=== PATIENT | female | born 1990 | race Caucasian/White ===

== ENCOUNTER 2024-03-27 12:10 | Emergency (ER) | payer OTHER ==
[~2024-03-27] VITALS: Ht 162.6 cm; Wt 78.0 kg
[2024-03-27 12:16] VITALS: BP 120/77; PULSE 76; RESP 18; TEMP 98; O2SAT 100
[2024-03-27] MEDS: KETOROLAC 30 MG/ML VIAL IVP ONE (13:39)
[2024-03-27] MEDS: ONDANSETRON 4 MG/2 ML VIAL IVP ONE (13:39)
[2024-03-27] MEDS: FAMOTIDINE 20 MG/2 ML VIAL IVP ONE (13:39)
[2024-03-27 13:52] LABS: ANION GAP 11.1 (8-16); CALCIUM 8.9 mg/dL (8.5-10.1); CARBON DIOXIDE 26.4 mmol/L (21-32); CREATININE 0.7 mg/dL (0.6-1.3); POTASSIUM 3.5 mmol/L (3.5-5.1)
[2024-03-27 13:58] LABS: BASOPHILS # (AUTO) 0.1 K/uL (0.00-0.22); EOSINOPHILS # (AUTO) 0.3 K/uL (0-0.4); EOSINOPHILS % (AUTO) 3.8 % (0.0-4.0); MONOCYTES # (AUTO) 0.6 K/uL (0.8-1.0)
[2024-03-27 13:58] LABS: APPEARANCE,URINE SLIGHTLY CLOUDY (CLEAR); COLOR,URINE AMBER (YELLOW)
[2024-03-27 13:59] LABS: BILIRUBIN,URINE NEGATIVE (NEGATIVE); BLOOD, URINE NEGATIVE (NEGATIVE); LEUKOCYTE ESTERASE ,URINE 2+ (NEGATIVE); NITRITE, URINE NEGATIVE (NEGATIVE); PROTEIN,URINE NEGATIVE (NEGATIVE); UGLUCOSE NEGATIVE (NEGATIVE); UROBILINOGEN,URINE 0.2 EU/dL (0.2 - 1)
[2024-03-27 13:59] LABS: ALBUMIN 3.6 g/dL (3.4-5.0); BILIRUBIN,DIRECT 0.2 mg/dL (0.0-0.3); TOTAL BILIRUBIN 0.9 mg/dL (0.0-1.0); TOTAL PROTEIN, SERUM 7.4 g/dL (6.4-8.2)
[2024-03-27 14:03] LABS: BASOPHILS % (AUTO) 0.8 % (0.0-2.0); HEMOGLOBIN 12.7 g/dL (12.0-16.0); LYMPHOCYTES # (AUTO) 1.8 K/uL (2.5-16.5); MEAN CORPUSCULAR HEMOGLOBIN 28 pg (27-31); MEAN CORPUSCULAR HGB CONC 34 g/dL (33-37); MEAN CORPUSCULAR VOLUME 83.1 fL (80-94); MONOCYTES % (AUTO) 8.4 % (1.7-9.3); NEUTROPHILS # (AUTO) 4.2 K/uL (1.8-7.7); PLATELET COUNT (AUTO) 262 K/uL (140-450); RED BLOOD CELL COUNT(AUTO) 4.57 MIL/uL (4.20-5.40); RED CELL DISTRIBUTION WIDTH 13.4 % (11.6-13.7); WHITE BLOOD COUNT (AUTO) 6.9 K/uL (4.8-10.8)
[2024-03-27 14:10] LABS: BACTERIA,URINE 2+ /HPF (None Seen); MUCUS,URINE None Seen /LPF (None Seen); RBC,URINE 0 /HPF (0-5); SQUAMOUS EPITHELIAL CELL,UR 4-10 (MOD) /LPF (0-3 (FEW))
[2024-03-27] MEDS ORDERED: SULF-59 PO (14:54)
[2024-03-27 15:09] VITALS: BP 114/68; PULSE 98; RESP 17; TEMP 98.2; O2SAT 99
== END 2024-03-27 15:10 | disposition home or self-care (01) ==
LOC: MED 12:10
DX: R10.9 Unspecified abdominal pain (principal); Z79.899 Other long term (current) drug therapy
CPT/HCPCS: 36415; 76705; 80048; 80076; 81001; 81025; 83690; 85025; 87086; 96374; 96375; 99285; J1885; J2405; J3490; Q0092